=== PATIENT | male | born 1975 | race Caucasian/White ===

== ENCOUNTER 2018-11-28 14:52 | Emergency (ER) | payer MEDICAID ==
[~2018-11-28] VITALS: Ht 188 cm; Wt 81.8 kg
[2018-11-28 15:05] VITALS: Ht 188 cm; Wt 81.8 kg
[2018-11-28] MEDS ORDERED: PREDNISONE50 MG PO (15:39)
[2018-11-28 16:23] VITALS: BP 156/99
== END 2018-11-28 16:24 | disposition home or self-care (01) ==
LOC: D.ER 14:52
DX: G56.21 Lesion of ulnar nerve, right upper limb (principal)